=== PATIENT | male | born 1975 | race Caucasian/White ===

== ENCOUNTER → 2017-01-04 | Outpatient (CLI) | payer BC | LOC: RAD 14:33 | DX: M47.816 Spondylosis without myelopathy or radiculopathy, lumbar region (principal); M48.061 Spinal stenosis, lumbar region without neurogenic claudication ==

== ENCOUNTER → 2017-03-25 | Outpatient (CLI) | payer BC | LOC: LAB 11:41 | DX: R05 Cough (principal); R50.81 Fever presenting with conditions classified elsewhere; R53.81 Other malaise; Z88.5 Allergy status to narcotic agent ==

== ENCOUNTER → 2019-09-25 | Outpatient (CLI) | payer BC | LOC: LAB 13:08 | DX: Z20.828 Contact with and (suspected) exposure to other viral communicable diseases (principal) ==

== ENCOUNTER → 2020-09-16 | Outpatient (CLI) | payer BC ==
[2020-09-16 09:29] LABS: BASO # 0.04 (0.02-0.10); EOS # 0.13 (0.04-0.40); EOS % 2.4 % (0.0-4.0); HEMATOCRIT 46.5 % (42.0-52.0); HEMOGLOBIN 15.8 g/dL (13.5-18.0); MEAN CELL VOLUME 89 fl (78-100); MEAN CORPUSCULAR HEMOGLOBIN 30 pg (27-31); MEAN CORPUSCULAR HGB CONC 34 g/dL (33-37); MEAN PLATELET VOLUME 10.5 fl (7.4-10.4); MONO # 0.59 (0.20-0.80); NEU # 3.33 (1.40-6.50); PLATELET COUNT 208 K/mm3 (130-400); RED BLOOD COUNT 5.22 M/mm3 (4.20-5.60); RED CELL DISTRIBUTION WIDTH 13.3 % (11.5-14.5); WHITE BLOOD COUNT 5.4 K/mm3 (4.8-10.8)
[2020-09-16 09:32] LABS: ALBUMIN 4.1 g/dL (3.5-5.0); POTASSIUM 4.5 mmol/L (3.5-5.1)
[2020-09-16 09:33] LABS: CALCIUM 8.5 mg/dL (8.3-10.5)
[2020-09-16 09:34] LABS: TOTAL PROTEIN 6.9 g/dL (6.4-8.3)
== END ==
LOC: LAB 09:02
PROVIDERS: Internal Medicine
DX: R73.03 Prediabetes (principal)

== ENCOUNTER → 2021-02-17 | Outpatient (CLI) | payer BC ==
[2021-02-17 11:29] LABS: BASO # 0.06 K/mm3 (0.02-0.10); EOS # 0.17 K/mm3 (0.04-0.40); EOS % 2.5 % (0.0-4.0); HEMATOCRIT 51.6 % (42.0-52.0); HEMOGLOBIN 17.2 g/dL (13.5-18.0); LYMPH# 1.42 K/mm3 (1.50-4.00); MEAN CELL VOLUME 92 fl (78-100); MEAN CORPUSCULAR HEMOGLOBIN 31 pg (27-31); MEAN CORPUSCULAR HGB CONC 33 g/dL (33-37); MEAN PLATELET VOLUME 11.4 fl (7.4-10.4); NEU # 4.43 K/mm3 (1.40-6.50); PLATELET COUNT 196 K/mm3 (130-400); RED CELL DISTRIBUTION WIDTH 12.3 % (11.5-14.5); WHITE BLOOD COUNT 6.8 K/mm3 (4.8-10.8)
[2021-02-17 11:33] LABS: POTASSIUM 4.6 mmol/L (3.5-5.1)
[2021-02-17 11:34] LABS: ALBUMIN 4.5 g/dL (3.5-5.0)
[2021-02-17 11:35] LABS: CALCIUM 9.2 mg/dL (8.3-10.5)
[2021-02-17 11:36] LABS: TOTAL PROTEIN 7.2 g/dL (6.4-8.3)
[2021-02-17 11:38] LABS: TOTAL BILIRUBIN 0.9 mg/dL (0.2-1.2)
== END ==
LOC: LAB 08:27
PROVIDERS: Internal Medicine
DX: E78.2 Mixed hyperlipidemia (principal); K90.9 Intestinal malabsorption, unspecified; R73.03 Prediabetes

== ENCOUNTER → 2021-03-20 | Outpatient (CLI) | payer BC | LOC: LAB 08:31 | DX: K90.9 Intestinal malabsorption, unspecified (principal) ==

== ENCOUNTER → 2021-08-15 | Outpatient (CLI) | payer BC ==
[2021-08-15 08:35] LABS: BASO # 0.04 K/mm3 (0.02-0.10); EOS % 3.7 % (0.0-4.0); HEMATOCRIT 52.2 % (42.0-52.0); HEMOGLOBIN 17.5 g/dL (13.5-18.0); LYMPH# 1.34 K/mm3 (1.50-4.00); MEAN CELL VOLUME 91 fl (78-100); MEAN CORPUSCULAR HEMOGLOBIN 30 pg (27-31); MEAN CORPUSCULAR HGB CONC 34 g/dL (33-37); MEAN PLATELET VOLUME 10.3 fl (7.4-10.4); NEU # 5.67 K/mm3 (1.40-6.50); PLATELET COUNT 211 K/mm3 (130-400); RED BLOOD COUNT 5.77 M/mm3 (4.20-5.60); RED CELL DISTRIBUTION WIDTH 12.4 % (11.5-14.5); WHITE BLOOD COUNT 8.1 K/mm3 (4.8-10.8)
[2021-08-15 08:41] LABS: POTASSIUM 4.1 mmol/L (3.5-5.1)
[2021-08-15 08:42] LABS: ALBUMIN 4.5 g/dL (3.5-5.0)
[2021-08-15 08:43] LABS: CALCIUM 9.4 mg/dL (8.3-10.5)
[2021-08-15 08:44] LABS: TOTAL PROTEIN 7.1 g/dL (6.4-8.3)
[2021-08-15 08:46] LABS: TOTAL BILIRUBIN 1.1 mg/dL (0.2-1.2)
== END ==
LOC: LAB 08:16
PROVIDERS: Internal Medicine
DX: Z12.5 Encounter for screening for malignant neoplasm of prostate (principal); E78.2 Mixed hyperlipidemia; E11.9 Type 2 diabetes mellitus without complications; E66.01 Morbid (severe) obesity due to excess calories

== ENCOUNTER → 2023-05-28 | Outpatient (CLI) | payer OTHER ==
[~2023-05-28] VITALS: Ht 172.7 cm; Wt 97.5 kg
== END ==
LOC: CARDREHAB 07:57
DX: R07.89 Other chest pain (principal)
CPT/HCPCS: A9500

== ENCOUNTER → 2023-11-01 | Outpatient (REF) | payer OTHER ==
[2023-11-01 13:57] LABS: BASO # 0.02 K/mm3 (0.02-0.10); EOS # 0.14 K/mm3 (0.04-0.40); EOS % 1.4 % (0.0-4.0); HEMATOCRIT 50.2 % (42.0-52.0); HEMOGLOBIN 16.5 g/dL (13.5-18.0); LYMPH# 1.28 K/mm3 (1.50-4.00); MEAN CELL VOLUME 95 fl (78-100); MEAN CORPUSCULAR HEMOGLOBIN 31 pg (27-31); MEAN CORPUSCULAR HGB CONC 33 g/dL (33-37); MEAN PLATELET VOLUME 10.5 fl (7.4-10.4); MONO # 0.81 K/mm3 (0.20-0.80); NEU # 7.47 K/mm3 (1.40-6.50); PLATELET COUNT 215 K/mm3 (130-400); RED CELL DISTRIBUTION WIDTH 13.5 % (11.5-14.5); WHITE BLOOD COUNT 9.7 K/mm3 (4.8-10.8)
== END ==
LOC: LAB 13:36
PROVIDERS: Nurse Practitioner Family
DX: R50.9 Fever, unspecified (principal); R06.00 Dyspnea, unspecified; Z20.822 Contact with and (suspected) exposure to COVID-19

== ENCOUNTER → 2024-05-01 | Outpatient (CLI) | payer BC | LOC: LAB 07:44 | DX: U07.1 COVID-19 (principal) ==